=== PATIENT | female | born 1990 | race African-American/Black ===

== ENCOUNTER 2016-12-27 11:41 | Emergency (ER) | payer MEDICAID ==
[~2016-12-27] VITALS: Ht 160 cm; Wt 104.5 kg
[~2016-12-27 11:41] MED LIST: BACT800T5 PO; CEPH500C3 PO; PERM5CRE4 TOP; PRED20 PO; PREN0.01 PO; Z.0.NO CURRENT MEDS
[2016-12-27 11:42] VITALS: BP 137/88; PULSE 73; RESP 16; TEMP 98.7; O2SAT 98
--- NOTE | 2016-12-27 11:48 | PD ---
Physical Exam Time Seen by Provider: 11:47 Narrative 26 y/o female here complaining of intermittent vaginal bleeding for the past few months. Vital signs reviewed. Seen at triage desk. Awaiting bed placement. Data Data Last Documented VS Vital Signs Date Time Temp Pulse Resp B/P (MAP) Pulse Ox O2 Delivery O2 Flow Rate FiO2 12/27/16 11:42 98.7 73 16 137/88 (104) 98 Room Air MDM Medical Record Reviewed: Yes Supervised Visit with RADHA: Rell Norwood Dec 27, 2016 11:48
--- NOTE | 2016-12-27 12:19 | PD ---
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 The patient states she delivered her child 7 years ago, approximately 2 years ago developed irregular menstrual cycles. The patient saw her primary physician who diagnosed irregular menstrual cycles but did not give her reason. The patient states her cycles are irregular, she is currently having light spotting using 4 tampons a day, denies any significant pain or cramping. She denies any history of PCOS, thyroid disorders, or known fibroids. The patient denies any lightheadedness, syncope, or shortness of breath with exertion. She denies any associated dysuria, frequency, urgency, or vaginal discharge. She has not seen a control systems specialist in over one year, recently moved from [facility] back to the [facility]. PFS Past Medical History Medical History: Denies Significant Hx Tetanus Vaccination: Unknown Influenza Vaccination: No ?: Not LMP: 12/27/16 : 1 Para: 1 Past Surgical History Narrative Surgical section Social History Alcohol Use: Yes (occ.) Tobacco Use: No Substance Use: No Allergies-Medications (Allergen,Severity, Reaction): Coded Allergies: No Known Allergies (Verified , 12/27/16) Reported Meds & Prescriptions Reported Meds & Active Scripts Active No Active Prescriptions or Reported Medications Review of Systems Except as stated in HPI: all other systems reviewed are Neg HENT: No: Lightheadedness Cardiovascular: No: Chest Pain or Discomfort, Dyspnea on exertion Respiratory: No: Shortness of Breath Gastrointestinal: No: Nausea, Vomiting, Abdominal Pain Genitourinary: Positive: Menorrhagia, Metorrhagia, Vaginal Bleeding, No: Dysuria, Pelvic Pain, Discharge Physical Exam Narrative GENERAL: Awake, alert, pleasant 26-year-old female who appears her stated age and is in no acute respiratory distress. SKIN: Focused skin assessment warm/dry. HEAD: Atraumatic. Normocephalic. EYES: Pupils equal and round. No scleral icterus. No injection or drainage. ENT: No nasal bleeding or discharge. Mucous membranes pink and moist. NECK: Trachea midline. No JVD. CARDIOVASCULAR: Regular rate and rhythm. No murmur appreciated. RESPIRATORY: No accessory muscle use. Clear to auscultation. Breath sounds equal bilaterally. GASTROINTESTINAL: Abdomen soft, non-tender, nondistended. No rebound tenderness. Back: No CVA tenderness. Genitourinary: The exam was performed in the presence of a female nurse. External examination reveals no rashes or lesions. Speculum examination reveals the cervix is closed, there is blood at the cervical os, scant blood in the vaginal vault. No obvious lesions. MUSCULOSKELETAL: No obvious deformities. No clubbing. No cyanosis. No edema. NEUROLOGICAL: Awake and alert. No obvious cranial nerve deficits. Motor grossly within normal limits. Normal speech. PSYCHIATRIC: Appropriate mood and affect; insight and judgment normal. Data Data Last Documented VS Vital Signs Date Time Temp Pulse Resp B/P (MAP) Pulse Ox O2 Delivery O2 Flow Rate FiO2 12/27/16 14:46 97.8 78 16 130/77 (94) 99 12/27/16 11:42 Room Air Orders Orders Complete Blood Count With Diff (12/27/16 12:07) Ed Urine Pregnancytest Poc (12/27/16 12:07) Thyroid Stimulating Hormone (12/27/16 12:07) Free Thyroxine (T4) (12/27/16 12:07) Us Pelvis Comp W Transvaginal (12/27/16 ) Labs Laboratory Tests Test 12/27/16 12:15 White Blood Count 7.8 TH/MM3 Red Blood Count 4.52 MIL/MM3 Hemoglobin 10.5 GM/DL Hematocrit 33.4 % Mean Corpuscular Volume 74.0 FL Mean Corpuscular Hemoglobin 23.3 PG Mean Corpuscular Hemoglobin Concent 31.5 % Red Cell Distribution Width 15.9 % Platelet Count 261 TH/MM3 Mean Platelet Volume 7.6 FL Neutrophils (%) (Auto) 56.3 % Lymphocytes (%) (Auto) 37.8 % Monocytes (%) (Auto) 4.9 % Eosinophils (%) (Auto) 0.6 % Basophils (%) (Auto) 0.4 % Neutrophils # (Auto) 4.4 TH/MM3 Lymphocytes # (Auto) 2.9 TH/MM3 Monocytes # (Auto) 0.4 TH/MM3 Eosinophils # (Auto) 0.0 TH/MM3 Basophils # (Auto) 0.0 TH/MM3 CBC Comment DIFF FINAL Differential Comment Free Thyroxine 0.87 NG/DL Thyroid Stimulating Hormone 3rd Gen 0.893 uIU/ML MDM Medical Decision Making Medical Screen Exam Complete: Yes Emergency Medical Condition: Yes Medical Record Reviewed: Yes Interpretation(s) Laboratory Tests Test 12/27/16 12:15 White Blood Count 7.8 TH/MM3 Red Blood Count 4.52 MIL/MM3 Hemoglobin 10.5 GM/DL Hematocrit 33.4 % Mean Corpuscular Volume 74.0 FL Mean Corpuscular Hemoglobin 23.3 PG Mean Corpuscular Hemoglobin Concent 31.5 % Red Cell Distribution Width 15.9 % Platelet Count 261 TH/MM3 Mean Platelet Volume 7.6 FL Neutrophils (%) (Auto) 56.3 % Lymphocytes (%) (Auto) 37.8 % Monocytes (%) (Auto) 4.9 % Eosinophils (%) (Auto) 0.6 % Basophils (%) (Auto) 0.4 % Neutrophils # (Auto) 4.4 TH/MM3 Lymphocytes # (Auto) 2.9 TH/MM3 Monocytes # (Auto) 0.4 TH/MM3 Eosinophils # (Auto) 0.0 TH/MM3 Basophils # (Auto) 0.0 TH/MM3 CBC Comment DIFF FINAL Differential Comment Free Thyroxine 0.87 NG/DL Thyroid Stimulating Hormone 3rd Gen 0.893 uIU/ML Last Impressions Pelvis Ultrasound 12/27/16 0000 Signed Impressions: Service Date/Time: Sunday, December 27, 2016 12:49 - CONCLUSION: Scattered small subcentimeter cyst lower uterine segment. Evin Dixon MD FACR Differential Diagnosis Differential diagnosis includes menorrhagia, dysfunctional uterine bleeding, , cervical mass, thyroid disorder. Narrative Course Labs are drawn and sent. Bedside UA test was obtained. A pelvic exam was performed in the presence of a female nurse. Ultrasound was ordered to evaluate for possible uterine fibroid. TSH and free T4 are unremarkable. Patient's hemoglobin is 10.5. Patient's vitals are unremarkable. Ultrasound is unremarkable except for motor uterine cyst. The patient stable for outpatient follow-up. Diagnosis Primary Impression: Menorrhagia Qualified Codes: N92.1 - Excessive and frequent menstruation with irregular cycle Patient Instructions: General Instructions Additional Instructions: Please provide the patient a copy of her lab results and ultrasound results at discharge. Follow-up with her primary physician. Return if symptoms worsen or progress. Med/Other Pt SpecificInfo: No Change to Meds Scripts No Active Prescriptions or Reported Meds Disposition: 01 DISCHARGE HOME Condition: Stable Raj Cole MD Dec 27, 2016 12:19
[2016-12-27 12:44] LABS: AUTOMATED NEUTROPHIL # 4.4 TH/MM3 (1.8-7.7); BASOPHIL % 0.4 % (0.0-2.0); EOSINOPHIL % 0.6 % (0.0-4.0); HEMATOCRIT 33.4 % (35.0-46.0); HEMO FLAGS DIFF FINAL; LYMPH % 37.8 % (9.0-44.0); LYMPHOCYTE # 2.9 TH/MM3 (1.0-4.8); MEAN CORPUSCULAR HEMOGLOBIN 23.3 PG (27.0-34.0); MEAN CORPUSCULAR HGB CONC 31.5 % (32.0-36.0); MONO % 4.9 % (0.0-8.0); NEUT % 56.3 % (16.0-70.0); PLATELET COUNT 261 TH/MM3 (150-450); RED BLOOD COUNT 4.52 MIL/MM3 (4.00-5.30); RED CELL DISTRIBUTION WIDTH 15.9 % (11.6-17.2); WHITE BLOOD COUNT 7.8 TH/MM3 (4.0-11.0)
[2016-12-27 13:27] LABS: FREE T4 0.87 NG/DL (0.76-1.46)
--- NOTE | 2016-12-27 14:29 | RADRPT ---
EXAM DATE/TIME: 12/27/2016 12:49 [facility] COMPARISON: No previous studies available for comparison. INDICATIONS : Pelvic bleeding. MEDICAL HISTORY : Abnormal uterine bleeding. SURGICAL HISTORY : section. ENCOUNTER: Initial ACUITY: 2 weeks PAIN SCORE: 0/10 LOCATION: Bilateral pelvis MEASUREMENTS: UTERUS: 8.5 x 4.5 x 3.4 cm ENDOMETRIAL STRIPE: 9 mm RIGHT OVARY: 3.6 x 2.1 x 2.2 cm LEFT OVARY: 3.6 x 1.7 x 2.0 cm FINDINGS: UTERUS: Scattered small cystic areas are seen in the lower uterine segment otherwise uterus is unremarkable. RIGHT OVARY: Ovary contains no mass or significant cystic lesion. LEFT OVARY: Ovary contains no mass or significant cystic lesion. MISCELLANEOUS: No free fluid. CONCLUSION: Scattered small subcentimeter cyst lower uterine segment. Evin Dixon MD FACR on December 27, 2016 at 14:27 Board Certified Radiologist. This report was verified electronically.
[2016-12-27 14:46] VITALS: BP 130/77; TEMP 97.8
== END 2016-12-27 14:46 | disposition home or self-care (01) ==
LOC: NEPD 11:41
DX: N92.1 Excessive and frequent menstruation with irregular cycle (principal)
CPT/HCPCS: 76830; 76856; 84439; 84443; 84703; 85025; 99284